=== PATIENT | female | born 1975 | race African-American/Black ===

== ENCOUNTER 2017-12-31 07:29 | Emergency (ER) | payer OTHER, MEDICAID ==
[~2017-12-31] VITALS: Ht 167.6 cm; Wt 68.9 kg
[2017-12-31 08:09] LABS: Basophils # (auto) 0.1 uL; Eosinophils # (auto) 0.1 uL; Hemoglobin 11.7 g/dL (12.2-16.2); Lymphocytes # (auto) 1.6 uL; Monocytes # (auto) 0.7 uL; Neutrophils # (auto) 4.5 uL; Nucleated Red Blood Cells % 0.1 %
[2017-12-31 08:11] LABS: Basophils % (auto) 0.8 % (0.0-2.0); Eosinophils % (auto) 1.1 % (0.0-7.0); Hematocrit 36.6 % (36.0-46.0); Lymphocytes % (auto) 22.4 % (10.0-50.0); Mean Corpuscular Hemoglobin 24.5 pg (28.0-32.0); Mean Corpuscular Volume 76.5 fL (80.0-100.0); Monocytes % (auto) 10.8 % (0.0-12.0); Neutrophils % (auto) 64.9 % (37.0-80.0); Platelet Count (auto) 258 10^3/uL (140-450); Red Blood Cells 4.79 10^6/uL (4.0-5.20); Red Cell Distribution Width 14.4 % (11.8-14.3); White Blood Cell 6.9 10^3/uL (4.4-10.8)
[2017-12-31 08:27] LABS: Albumin 3.4 g/dL (3.4-5.0); BUN/Creatinine Ratio 16.4; Potassium 4.3 mmol/L (3.5-5.1)
[2017-12-31 08:31] LABS: Bilirubin, Total 0.5 mg/dL (0.2-1.0); Total Protein 6.8 g/dL (6.4-8.2)
[2017-12-31 10:50] LABS: Urine Bacteria NONE SEEN /hpf (None Seen); Urine Blood Negative /uL (Negative); Urine Specific Gravity 1.011 (1.001-1.035); Urine WBC 3 /hpf (0 - 5)
[2017-12-31 11:00] VITALS: BP 123/72
== END 2017-12-31 11:55 | disposition home or self-care (01) ==
LOC: ER 07:29
DX: O26.891 Other specified pregnancy related conditions, first trimester (principal); O23.41 Unspecified infection of urinary tract in pregnancy, first trimester; Z3A.10 10 weeks gestation of pregnancy; Z88.0 Allergy status to penicillin; Z87.11 Personal history of peptic ulcer disease
CPT/HCPCS: 36415; 76801; 80053; 81001; 84702; 85025

== ENCOUNTER 2023-09-21 12:57 | Emergency (ER) | payer MEDICAID, OTHER ==
[~2023-09-21] VITALS: Ht 165.1 cm; Wt 68.1 kg
[2023-09-21 16:56] VITALS: BP 125/88; PULSE 75; RESP 18; TEMP 97.9; O2SAT 98
[2023-09-21] MEDS ORDERED: KETOROLAC TROMETH 60MG/2ML VIAL IM ONE (17:00)
[2023-09-21] MEDS ORDERED: ACETAMINOPHEN 500 MG TAB PO ONE (17:00)
[2023-09-21] MEDS ORDERED: ACE3T PO (17:50)
[2023-09-21] MEDS ORDERED: IBUP-1455 PO (17:50)
== END 2023-09-21 17:58 | disposition home or self-care (01) ==
LOC: ER 12:57
DX: S16.1XXA Strain of muscle, fascia and tendon at neck level, initial encounter (principal); S39.012A Strain of muscle, fascia and tendon of lower back, initial encounter; V43.52XA Car driver injured in collision with other type car in traffic accident, initial encounter; Y93.89 Activity, other specified; Y92.89 Other specified places as the place of occurrence of the external cause; Y99.8 Other external cause status
CPT/HCPCS: 72040; 72100; 96372; 99284; J1885

== ENCOUNTER 2024-10-23 13:02 | Emergency (ER) | payer MEDICAID, OTHER ==
[~2024-10-23] VITALS: Ht 167.6 cm; Wt 77.0 kg
[~2024-10-23 13:02] MED LIST: ACE3T PO; IBUP-1455 PO
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
[2024-10-23] MEDS ORDERED: CYCL-837 PO (17:20)
[2024-10-23 17:40] VITALS: BP 155/90; PULSE 92; RESP 18; TEMP 98.5; O2SAT 98
== END 2024-10-23 17:46 | disposition home or self-care (01) ==
LOC: ER 13:02
DX: S06.0X0A Concussion without loss of consciousness, initial encounter (principal); S16.1XXA Strain of muscle, fascia and tendon at neck level, initial encounter; S39.012A Strain of muscle, fascia and tendon of lower back, initial encounter; S50.01XA Contusion of right elbow, initial encounter; M50.30 Other cervical disc degeneration, unspecified cervical region; Z88.0 Allergy status to penicillin; Z88.1 Allergy status to other antibiotic agents; Y08.89XA Assault by other specified means, initial encounter; Y93.89 Activity, other specified; Y92.89 Other specified places as the place of occurrence of the external cause; Y99.8 Other external cause status
CPT/HCPCS: 70450; 72125